=== PATIENT | female | born 1960 | race Caucasian/White ===

== ENCOUNTER 2021-11-22 08:29 | Emergency (ER) | payer SELFPAY ==
[2021-11-22 17:19] LABS: SARS-CoV-2 PCR by NAA DETECTED (NotDetected)
== END 2021-11-22 09:25 | disposition home or self-care (01) ==
LOC: CSHERS 08:29
DX: U07.1 COVID-19 (principal); J06.9 Acute upper respiratory infection, unspecified; E03.9 Hypothyroidism, unspecified
CPT/HCPCS: 87804; 99283; U0003; U0005